=== PATIENT | female | born 1930 | race Asian ===

== ENCOUNTER 2020-02-05 17:10 | Emergency (ER) | payer MEDICARE, OTHER ==
[~2020-02-05] VITALS: Ht 154.9 cm; Wt 77.3 kg
[2020-02-05] MEDS ORDERED: CYCLOBENZAPRINE HCL 10 MG TABLET PO ONE (18:00)
[2020-02-05] MEDS ORDERED: LIDOCAINE 5% TRANSDERMAL PATCH TD ONE (18:00)
[2020-02-05] MEDS ORDERED: KETOROLAC TROMETHAMINE 30 MG/ML VIAL IM ONE (18:00)
[2020-02-05 18:55] VITALS: BP 134/73
== END 2020-02-05 19:04 | disposition home or self-care (01) ==
LOC: EMS 17:16
DX: M53.3 Sacrococcygeal disorders, not elsewhere classified (principal); F17.200 Nicotine dependence, unspecified, uncomplicated
CPT/HCPCS: 96372; 99283; J1885